=== PATIENT | male | born 1965 | race Caucasian/White ===

== ENCOUNTER → 2018-05-24 | Outpatient (CLI) | payer MEDICAID ==
[~2018-05-24] MED LIST: ALPR1TAB2 PO; HYDR-3307 PO; ZOLP-413 PO
== END | disposition home or self-care (01) ==
LOC: CFH 14:36
PROVIDERS: ATTEND Family Medicine
DX: M25.521 Pain in right elbow (principal)

== ENCOUNTER → 2018-06-19 | Outpatient (CLI) | payer MEDICAID ==
[~2018-06-19] MED LIST changes: +OMNIPAQUE 350 MG/ML, 150 ML BOTTLE ONE
== END | disposition home or self-care (01) ==
LOC: CFH 09:09
PROVIDERS: ATTEND Surgery
DX: K76.89 Other specified diseases of liver (principal); K25.9 Gastric ulcer, unspecified as acute or chronic, without hemorrhage or perforation; K58.9 Irritable bowel syndrome, unspecified; Z98.84 Bariatric surgery status; Z87.19 Personal history of other diseases of the digestive system
CPT/HCPCS: 74177; 76700; Q9967

== ENCOUNTER → 2018-07-18 | Outpatient (CLI) | payer MEDICAID ==
[~2018-07-18] MED LIST changes: -OMNIPAQUE 350 MG/ML, 150 ML BOTTLE ONE; +SINCALIDE (KINEVAC) 5 MCG ONE
== END | disposition home or self-care (01) ==
LOC: PETCFH 12:10
PROVIDERS: ATTEND Surgery
DX: R10.11 Right upper quadrant pain (principal)
CPT/HCPCS: 78227; A9537; J2805

== ENCOUNTER → 2018-11-07 | Outpatient (CLI) | payer MEDICAID ==
[~2018-11-07] MED LIST changes: -SINCALIDE (KINEVAC) 5 MCG ONE
== END | disposition home or self-care (01) ==
LOC: CFH 07:45
PROVIDERS: ATTEND Family Medicine
DX: I34.0 Nonrheumatic mitral (valve) insufficiency (principal)
CPT/HCPCS: 93306

== ENCOUNTER 2019-03-18 10:36 | Day surgery (SDC) | payer MEDICAID ==
[~2019-03-18] VITALS: Ht 177.8 cm; Wt 155.7 kg
[2019-03-18 11:26] VITALS: BP 130/80
[2019-03-18] MEDS ORDERED: ALPR1TAB2 PO (11:26)
[2019-03-18] MEDS ORDERED: ZOLP10TA PO (11:26)
[2019-03-18] MEDS ORDERED: ALBU18HF INH (11:26)
[2019-03-18] MEDS ORDERED: OXYC10TA47 PO (11:26)
[2019-03-18] MEDS ORDERED: LACTATED RINGERS 1,000 ML IV SCH (12:00)
[2019-03-18] MEDS ORDERED: hydrALAzine 20 MG/ML, 1ML IV PRN (12:00)
[2019-03-18] MEDS ORDERED: ONDANSETRON 2MG/ML, 2ML IV PRN (12:00)
[2019-03-18] MEDS ORDERED: ACETAMINOPHEN 325 MG TABLET PO PRN (12:00)
[2019-03-18] MEDS ORDERED: FENTANYL PF 100 MCG/2ML IV PRN (12:00)
[2019-03-18] MEDS ORDERED: ALBUTEROL/IPRATROPIUM 2.5MG/0.5MG, 3 ML NPPB PRN (12:00)
[2019-03-18] MEDS ORDERED: PROPOFOL 50 ML ONE (12:45)
[2019-03-18] MEDS ORDERED: ONDANSETRON ODT 4 MG ONE (14:04)
[2019-03-18] MEDS ORDERED: ONDANSETRON ODT 4 MG PO ONE (14:30)
[2019-05-26] MEDS ORDERED: CYCL-259 PO (11:47)
[2019-05-26] MEDS ORDERED: DICL100G19 TP (11:47)
[2019-05-26] MEDS ORDERED: SACC250C4 PO (11:47)
[2019-05-26] MEDS ORDERED: MOME17SP NS (11:47)
[2019-05-26] MEDS ORDERED: cannabis INH (11:47)
[2019-05-26] MEDS ORDERED: cannabis PO (11:47)
[2019-05-26] MEDS ORDERED: OXYC10TA6 PO (11:47)
[2019-05-26] MEDS ORDERED: ONDA4TAB13 SL (11:47)
[2019-05-26] MEDS ORDERED: CHOL100015 PO (11:47)
== END 2019-03-18 14:55 | disposition home or self-care (01) ==
LOC: OUT 10:36
PROVIDERS: ATTEND Internal Medicine Gastroenterology
DX: T18.2XXA Foreign body in stomach, initial encounter (principal); J45.909 Unspecified asthma, uncomplicated; E66.01 Morbid (severe) obesity due to excess calories; Z68.42 Body mass index [BMI] 45.0-49.9, adult; Z90.49 Acquired absence of other specified parts of digestive tract; Z98.84 Bariatric surgery status; Z88.8 Allergy status to other drugs, medicaments and biological substances; Z88.0 Allergy status to penicillin; Z88.1 Allergy status to other antibiotic agents; X58.XXXA Exposure to other specified factors, initial encounter; Y93.89 Activity, other specified; Y92.89 Other specified places as the place of occurrence of the external cause; Y99.8 Other external cause status; Z98.0 Intestinal bypass and anastomosis status
CPT/HCPCS: 43239; 43247; 88305; J2704; J7120; Q0162

== ENCOUNTER → 2019-04-16 | Outpatient (CLI) | payer MEDICAID ==
[~2019-04-16] MED LIST changes: +ALBU18HF INH; +OXYC10TA47 PO; +ZOLP10TA PO
== END | disposition home or self-care (01) ==
LOC: RAD 07:40
PROVIDERS: ATTEND Thoracic Surgery (Cardiothoracic Vascular Surgery)
DX: K31.6 Fistula of stomach and duodenum (principal)
CPT/HCPCS: 74241

== ENCOUNTER 2019-05-28 07:35 | Inpatient (IN) | payer MEDICAID ==
[~2019-05-28] VITALS: Ht 177.8 cm; Wt 151.0 kg
[~2019-05-28 07:35] MED LIST changes: +BUPIVACAINE/EPI 0.5% 1:200K ONE; +CHOL100015 PO; +CYCL-259 PO; +DICL100G19 TP; +MOME17SP NS; +ONDA4TAB13 SL; +OXYC10TA6 PO; +SACC250C4 PO; +cannabis INH; +cannabis PO
[2019-05-28] MEDS ORDERED: LACTATED RINGERS 1,000 ML IV SCH (08:11)
[2019-05-28 08:13] VITALS: BP 121/81
[2019-05-28] MEDS ORDERED: MIDAZOLAM 1 MG/ML, 2ML ONE (10:07)
[2019-05-28] MEDS ORDERED: PROPOFOL 50 ML ONE ×2 (10:07→11:31)
[2019-05-28] MEDS ORDERED: FENTANYL PF 250 MCG/5ML ONE ×2 (10:08→10:49)
[2019-05-28] MEDS ORDERED: ONDANSETRON 2MG/ML, 2ML ONE ×2 (10:23→12:18)
[2019-05-28] MEDS ORDERED: DEXAMETHASONE 4 MG/ML, 5ML ONE (10:23)
[2019-05-28] MEDS ORDERED: CEFAZOLIN 1,000 MG ONE (10:23)
[2019-05-28] MEDS ORDERED: ROCURONIUM 10MG/ML,5ML ONE (10:50)
[2019-05-28] MEDS ORDERED: EPHEDRINE 50 MG/ML, 1ML IM PRN (11:00)
[2019-05-28] MEDS ORDERED: EPHEDRINE 50 MG/ML, 1ML IVPush PRN (11:00)
[2019-05-28] MEDS ORDERED: ONDANSETRON ODT 8 MG PO PRN (11:00)
[2019-05-28] MEDS ORDERED: MIDAZOLAM 1 MG/ML, 2ML IV PRN (11:00)
[2019-05-28] MEDS ORDERED: hydrALAzine 20 MG/ML, 1ML IV PRN (11:00)
[2019-05-28] MEDS ORDERED: DIAZEPAM 5 MG/ML, 2ML IVPush PRN (11:00)
[2019-05-28] MEDS ORDERED: MEPERIDINE/PF 25MG/0.5ML IVPush PRN (11:00)
[2019-05-28] MEDS ORDERED: ALBUTEROL SULFATE 2.5 MG/3 ML NPPB PRN ×2 (11:00→14:00)
[2019-05-28] MEDS ORDERED: DIPHENHYDRAMINE 50 MG/ML, 1ML IVPush PRN (11:00)
[2019-05-28] MEDS ORDERED: ONDANSETRON 2MG/ML, 2ML IV PRN (11:00)
[2019-05-28] MEDS ORDERED: METOPROLOL 1 MG/ML, 5ML IV PRN (11:00)
[2019-05-28] MEDS ORDERED: PROMETHAZINE 25 MG/ML, 1ML IV PRN (11:00)
[2019-05-28] MEDS ORDERED: SUCCINYLCHOLINE 20 MG/ML, 10ML ONE (11:31)
[2019-05-28] MEDS ORDERED: GLYCOPYRROLATE 0.4 MG/2 ML, 2ML ONE (11:46)
[2019-05-28] MEDS ORDERED: SUGAMMADEX 200 MG/2 ML IVPush ONE (11:46)
[2019-05-28] MEDS ORDERED: FENTANYL PF 100 MCG/2ML ONE (12:07)
[2019-05-28] MEDS ORDERED: OXYcodone 5 MG/5 ML ORAL.SOL UDC ONE (12:08)
[2019-05-28] MEDS: FENTANYL PF 100 MCG/2ML IV PRN ×3 (12:10→12:26)
[2019-05-28] MEDS: OXYcodone 5 MG/5 ML ORAL.SOL UDC PO PRN ×2 (12:14→12:50)
[2019-05-28] MEDS ORDERED: MEPERIDINE/PF 25MG/ML,1ML ONE (12:21)
[2019-05-28] MEDS ORDERED: ENALAPRILAT 1.25 MG/ML, 2ML IV PRN (12:30)
[2019-05-28] MEDS ORDERED: DIPHENHYDRAMINE 50 MG/ML, 1ML IV PRN (12:30)
[2019-05-28] MEDS ORDERED: FLUTICASONE NASAL SPRAY 16GM NAS PRN (12:30)
[2019-05-28] MEDS ORDERED: HYDROmorphone 1 MG/ML, 1ML INJ IVPush PRN (12:30)
[2019-05-28] MEDS ORDERED: PROMETHAZINE 25 MG/ML, 1ML IM PRN (12:30)
[2019-05-28] MEDS ORDERED: LORazepam 2 MG/ML, 1ML IV PRN (12:30)
[2019-05-28] MEDS ORDERED: PHENOL THROAT SPRAY BOTTLE MM PRN (12:30)
[2019-05-28] MEDS ORDERED: HYDROcodone/APAP 7.5-325MG/15ML UDC PO PRN (12:30)
[2019-05-28] MEDS ORDERED: PROMETHAZINE 12.5 MG SUPP PR PRN (12:30)
[2019-05-28] MEDS ORDERED: CYCLOBENZAPRINE 10 MG TABLET PO PRN (12:30)
[2019-05-28] MEDS ORDERED: hydrALAzine 20 MG/ML, 1ML IVPush PRN (12:30)
[2019-05-28] MEDS ORDERED: HYDROmorphone 2 MG/ML, 1ML ONE (12:32)
[2019-05-28] MEDS: HYDROmorphone 2 MG/ML, 1ML IVPush PRN ×3 (12:34→12:52)
[2019-05-28 13:45] VITALS: BP 112/67
[2019-05-28] MEDS ORDERED: OXYcodone IR 5MG TABLET PO PRN (14:30)
[2019-05-28] MEDS: LACTATED RINGERS 1,000 ML IV SCH (15:18)
[2019-05-28] MEDS ORDERED: OXYcodone IR 5MG TABLET ONE (18:07)
[2019-05-28] MEDS: OXYcodone IR 5MG TABLET PO PRN ×2 (18:33→21:41)
[2019-05-28] MEDS: ONDANSETRON 2MG/ML, 2ML IVPush PRN (18:33)
[2019-05-28 19:52] VITALS: BP 113/71
[2019-05-28] MEDS: FAMOTIDINE 20 MG/2 ML IVPush SCH (21:40)
[2019-05-29 00:45] VITALS: BP 100/57
[2019-05-29] MEDS: OXYcodone IR 5MG TABLET PO PRN ×3 (00:45→09:02)
[2019-05-29] MEDS: ONDANSETRON 2MG/ML, 2ML IVPush PRN (00:45)
[2019-05-29 07:21] VITALS: BP 104/67
[2019-05-29] MEDS: LACTATED RINGERS 1,000 ML IV SCH (07:22)
[2019-05-29] MEDS ORDERED: ENOXAPARIN 40 MG/0.4 ML SQ SCH (09:00)
[2019-05-29] MEDS: FAMOTIDINE 20 MG/2 ML IVPush SCH (09:01)
[2019-05-29 09:08] VITALS: BP 101/61
[2019-05-29] MEDS ORDERED: ZOLPIDEM 5MG TABLET PO PRN (10:00)
[2019-05-29] MEDS ORDERED: ALPRazolam 1MG TAB PO PRN (10:00)
[2019-05-29] MEDS ORDERED: OXYcodone IR 5MG TABLET PO PRN (10:00)
[2019-05-29] MEDS ORDERED: ONDANSETRON ODT 4 MG SL PRN (10:00)
[2019-05-29] MEDS ORDERED: CANNABIS PO SCH (10:00)
[2019-05-29] MEDS ORDERED: DICLOFENAC SODIUM TP SCH (10:00)
[2019-05-29] MEDS ORDERED: FLORASTOR 250 MG CAPSULE PO SCH (21:00)
[2019-05-30] MEDS ORDERED: CHOLECALCIFEROL 50000 UNIT PO SCH (09:00)
== END 2019-05-29 10:20 | disposition home or self-care (01) | DRG 327 ==
LOC: ORIP 07:35 → EDSTATUS 10:00 → 4NOR 13:30 → DCLOUNGE 05-29 10:10
PROVIDERS: ADMIT Thoracic Surgery (Cardiothoracic Vascular Surgery); ATTEND Thoracic Surgery (Cardiothoracic Vascular Surgery)
PROC: 0D164ZA Bypass Stomach to Jejunum, Percutaneous Endoscopic Approach (ICD-10-PCS; principal; 2019-05-28 10:00)
PROC: 0DB84ZZ Excision of Small Intestine, Percutaneous Endoscopic Approach (ICD-10-PCS; 2019-05-28 10:00)
DX: K95.89 Other complications of other bariatric procedure (principal); Z68.42 Body mass index [BMI] 45.0-49.9, adult; R13.10 Dysphagia, unspecified; T18.2XXA Foreign body in stomach, initial encounter; K66.0 Peritoneal adhesions (postprocedural) (postinfection); E66.01 Morbid (severe) obesity due to excess calories; R11.10 Vomiting, unspecified; Y83.2 Surgical operation with anastomosis, bypass or graft as the cause of abnormal reaction of the patient, or of later complication, without mention of misadventure at the time of the procedure; Y92.098 Other place in other non-institutional residence as the place of occurrence of the external cause
CPT/HCPCS: 36415; J3490; 86850; 86900; 88307; 93005; G0378; J0690; J1100; J1170; J1650; J2175; J2250; J2405; J2704; J3010; J0330; J1200; J7120

== ENCOUNTER → 2019-10-10 | Outpatient (CLI) | payer MEDICAID ==
[~2019-10-10] MED LIST changes: -BUPIVACAINE/EPI 0.5% 1:200K ONE; -HYDR-3307 PO; +HYDR-36 PO
== END | disposition home or self-care (01) ==
LOC: RAD 10:38 → EDSTATUS 11:00
PROVIDERS: ATTEND Family Medicine
DX: K87 Disorders of gallbladder, biliary tract and pancreas in diseases classified elsewhere (principal); R10.11 Right upper quadrant pain; Z90.49 Acquired absence of other specified parts of digestive tract
CPT/HCPCS: 74181

== ENCOUNTER 2019-12-05 07:50 | Outpatient (CLI) | payer MEDICAID | END 2019-12-05 23:59 | disposition home or self-care (01) | LOC: RAD 07:50 | PROVIDERS: ATTEND Internal Medicine Gastroenterology | DX: R10.11 Right upper quadrant pain (principal); R10.13 Epigastric pain; Z90.49 Acquired absence of other specified parts of digestive tract; Z98.84 Bariatric surgery status | CPT/HCPCS: 74245 ==

== ENCOUNTER 2019-12-26 05:30 | Day surgery (SDC) | payer MEDICAID ==
[~2019-12-26] VITALS: Ht 177.8 cm; Wt 152.9 kg
[2019-12-26] MEDS ORDERED: LACTATED RINGERS 1,000 ML IV SCH (06:20)
[2019-12-26 06:47] VITALS: BP 135/97
[2019-12-26] MEDS ORDERED: PROPOFOL 50 ML ONE (07:29)
[2019-12-26] MEDS ORDERED: ONDANSETRON 2MG/ML, 2ML IV PRN (07:30)
[2019-12-26] MEDS ORDERED: ACETAMINOPHEN 325 MG TABLET PO PRN (07:30)
[2019-12-26] MEDS ORDERED: FENTANYL PF 100 MCG/2ML IV PRN (07:30)
[2019-12-26] MEDS ORDERED: OXYcodone 5 MG/5 ML ORAL.SOL UDC PO PRN (07:30)
[2019-12-26] MEDS ORDERED: MIDAZOLAM 1 MG/ML, 2ML IV PRN (07:30)
== END 2019-12-26 09:15 | disposition home or self-care (01) ==
LOC: OUT 05:30
PROVIDERS: ATTEND Internal Medicine Gastroenterology
DX: R10.13 Epigastric pain (principal); K91.89 Other postprocedural complications and disorders of digestive system; K29.50 Unspecified chronic gastritis without bleeding; E66.01 Morbid (severe) obesity due to excess calories; J45.909 Unspecified asthma, uncomplicated; G47.33 Obstructive sleep apnea (adult) (pediatric); F32.9 Major depressive disorder, single episode, unspecified; F41.9 Anxiety disorder, unspecified; E55.9 Vitamin D deficiency, unspecified; Z68.43 Body mass index [BMI] 50.0-59.9, adult; Z79.899 Other long term (current) drug therapy; Z88.0 Allergy status to penicillin; Z91.040 Latex allergy status; Z98.84 Bariatric surgery status; Z91.018 Allergy to other foods; Z90.49 Acquired absence of other specified parts of digestive tract; Z98.890 Other specified postprocedural states
CPT/HCPCS: 43239; 43245; 88305; C1725; J2704; J7120

== ENCOUNTER → 2020-06-04 | Outpatient (CLI) | payer MEDICAID, OTHER ==
[~2020-06-04] MED LIST changes: +HYDR-3246 PO; -HYDR-36 PO
== END | disposition home or self-care (01) ==
LOC: STAR 09:56
PROVIDERS: ATTEND Thoracic Surgery (Cardiothoracic Vascular Surgery)
DX: Z01.818 Encounter for other preprocedural examination (principal); Z11.59 Encounter for screening for other viral diseases
CPT/HCPCS: 36415; 87635

== ENCOUNTER 2020-06-09 06:07 | Inpatient (IN) | payer MEDICAID, OTHER ==
[~2020-06-09] VITALS: Ht 177.8 cm; Wt 154.0 kg
[2020-06-09] MEDS ORDERED: CHLORHEXIDINE 15 ML UDC ONE (06:51)
[2020-06-09] MEDS ORDERED: CHLORHEXIDINE 15 ML UDC MM ONE (07:00)
[2020-06-09] MEDS ORDERED: LACTATED RINGERS 1,000 ML IV SCH (07:04)
[2020-06-09] MEDS ORDERED: BUPIVACAINE/PF-EPI 0.5% 1:200K ONE (07:10)
[2020-06-09] MEDS ORDERED: MIDAZOLAM 1 MG/ML, 2ML ONE (07:17)
[2020-06-09] MEDS ORDERED: FENTANYL PF 250 MCG/5ML ONE (07:18)
[2020-06-09] MEDS ORDERED: CEFAZOLIN 1,000 MG ONE ×2 (07:46→07:47)
[2020-06-09] MEDS ORDERED: SUCCINYLCHOLINE 20 MG/ML, 10ML ONE (07:46)
[2020-06-09] MEDS ORDERED: GLYCOPYRROLATE 0.2MG/1ML, 5ML ONE (07:46)
[2020-06-09] MEDS ORDERED: PROPOFOL 10 MG/ML, 20ML ONE ×2 (07:46→07:47)
[2020-06-09] MEDS ORDERED: ROCURONIUM 10MG/ML,5ML ONE ×2 (07:46)
[2020-06-09] MEDS ORDERED: ONDANSETRON 2MG/ML, 2ML ONE ×2 (07:46→10:30)
[2020-06-09] MEDS ORDERED: DEXAMETHASONE 4 MG/ML, 1ML ONE ×2 (07:46)
[2020-06-09] MEDS ORDERED: NEOSTIGMINE 1 MG/ML, 10ML ONE (07:46)
[2020-06-09] MEDS ORDERED: BUPIVACAINE/PF-EPI 0.5% 1:200K INFIL ONE (08:10)
[2020-06-09] MEDS ORDERED: KETOROLAC 30 MG/1 ML ONE (09:02)
[2020-06-09] MEDS ORDERED: SUGAMMADEX 200 MG/2 ML IVPush ONE (09:02)
[2020-06-09] MEDS ORDERED: DIAZEPAM 5 MG/ML, 2ML IVPush PRN (09:30)
[2020-06-09] MEDS ORDERED: OXYcodone 5 MG/5 ML ORAL.SOL UDC PO PRN (09:30)
[2020-06-09] MEDS ORDERED: ACETAMINOPHEN 325 MG TABLET PO PRN (09:30)
[2020-06-09] MEDS ORDERED: LABETALOL 5MG/ML, 20ML IV PRN (09:30)
[2020-06-09] MEDS ORDERED: PROMETHAZINE 25 MG/ML, 1ML IV PRN (09:30)
[2020-06-09] MEDS ORDERED: ALBUTEROL SULFATE 2.5 MG/3 ML NPPB PRN (09:30)
[2020-06-09] MEDS ORDERED: hydrALAzine 20 MG/ML, 1ML IV PRN (09:30)
[2020-06-09] MEDS ORDERED: MEPERIDINE/PF 25MG/0.5ML IVPush PRN (09:30)
[2020-06-09] MEDS: LACTATED RINGERS 1,000 ML IV SCH ×3 (09:37→22:26)
[2020-06-09] MEDS ORDERED: FENTANYL PF 100 MCG/2ML ONE ×2 (09:38→09:58)
[2020-06-09] MEDS: FENTANYL PF 100 MCG/2ML IV PRN ×4 (09:39→10:15)
[2020-06-09] MEDS ORDERED: PROMETHAZINE 25 MG/ML, 1ML ONE (09:41)
[2020-06-09] MEDS ORDERED: ONDANSETRON 2MG/ML, 2ML IVPush PRN (10:00)
[2020-06-09] MEDS: PANTOPRAZOLE 40 MG IV IVPush SCH (10:00)
[2020-06-09] MEDS ORDERED: ALBUTEROL HFA 90 MCG/SPRAY INH PRN (10:00)
[2020-06-09] MEDS ORDERED: ENALAPRILAT 1.25 MG/ML, 2ML IV PRN (10:00)
[2020-06-09] MEDS ORDERED: LORazepam 2 MG/ML, 1ML IV PRN (10:00)
[2020-06-09] MEDS ORDERED: PHENOL THROAT SPRAY BOTTLE MM PRN (10:00)
[2020-06-09] MEDS ORDERED: PROMETHAZINE 25 MG/ML, 1ML IM PRN (10:00)
[2020-06-09] MEDS ORDERED: PROMETHAZINE 12.5 MG SUPP PR PRN (10:00)
[2020-06-09] MEDS ORDERED: hydrALAzine 20 MG/ML, 1ML IVPush PRN (10:00)
[2020-06-09] MEDS ORDERED: HYDROcodone/APAP 7.5-325MG/15ML UDC PO PRN (10:00)
[2020-06-09] MEDS ORDERED: METHOCARBAMOL 1,000 MG in DEXTROSE 5% 100 ML IV ONE (10:30)
[2020-06-09] MEDS ORDERED: HYDROmorphone 2 MG/ML, 1ML ONE (10:30)
[2020-06-09] MEDS ORDERED: ONDANSETRON 2MG/ML, 2ML IVPush ONE (10:30)
[2020-06-09] MEDS: HYDROmorphone 2 MG/ML, 1ML IVPush PRN ×2 (10:36→10:57)
[2020-06-09] MEDS: morphine SULFATE 10 MG/ML, 1ML IVPush PRN ×4 (12:02→22:26)
[2020-06-09 14:05] VITALS: BP 131/85
[2020-06-09] MEDS: DIPHENHYDRAMINE 50 MG/ML, 1ML IV PRN ×3 (14:49→22:30)
[2020-06-09 19:24] VITALS: BP 110/71
[2020-06-10 00:55] VITALS: BP 112/72
[2020-06-10 03:41] VITALS: BP 110/73
[2020-06-10] MEDS: morphine SULFATE 10 MG/ML, 1ML IVPush PRN (05:27)
[2020-06-10 05:30] LABS: BASOPHILS # (AUTO) 0.02 x10^3/uL (0-0.1); BASOPHILS % (AUTO) 0 % (0-1); EOSINOPHILS # (AUTO) 0.08 x10^3/uL (0-0.4); EOSINOPHILS % (AUTO) 1 % (1-7); LYMPHOCYTES # (AUTO) 2.14 x10^3/uL (1-3.4); LYMPHOCYTES % (AUTO) 25 % (22-44); MD NO; MEAN CORPUSCULAR HEMOGLOBIN 27.7 pg (27.5-34.5); MEAN CORPUSCULAR HGB CONC 32.9 g/dL (33.2-36.2); MEAN CORPUSCULAR VOLUME 84.1 fL (81-97); MEAN PLATELET VOLUME 8.1 fL (7.4-10.4); MONOCYTES # (AUTO) 0.72 x10^3/uL (0.2-0.8); MONOCYTES % (AUTO) 8 % (2-9); NEUTROPHILS # (AUTO) 5.77 x10^3/uL (1.8-6.8); NEUTROPHILS % (AUTO) 66 % (42-75); PLATELET COUNT 224 x10^3/uL (130-400); RED BLOOD COUNT 4.31 x10^6/uL (4.38-5.82); RED CELL DISTRIBUTION WIDTH 15.2 % (9.4-14.8)
[2020-06-10 05:40] LABS: ANION GAP 3 mmol/L (5-15); CALCIUM 8.5 mg/dL (8.5-10.1); CHLORIDE 110 mmol/L (98-107)
[2020-06-10 05:43] LABS: CREATININE 0.89 mg/dL (0.7-1.3)
[2020-06-10] MEDS: LACTATED RINGERS 1,000 ML IV SCH ×3 (06:37→22:35)
[2020-06-10 07:26] VITALS: BP 117/58
[2020-06-10] MEDS ORDERED: ENOXAPARIN 40 MG/0.4 ML SQ SCH (10:00)
[2020-06-10] MEDS: PANTOPRAZOLE 40 MG IV IVPush SCH (10:01)
[2020-06-10] MEDS: OXYcodone IR 5MG TABLET PO PRN ×4 (12:08→22:01)
[2020-06-10] MEDS: DIPHENHYDRAMINE 50 MG/ML, 1ML IV PRN ×2 (12:10→22:01)
[2020-06-10 13:55] VITALS: BP 117/69
[2020-06-10 18:41] VITALS: BP 105/67
[2020-06-10] MEDS: ENOXAPARIN 30 MG/0.3 ML SQ SCH (22:00)
[2020-06-11 00:23] VITALS: BP 118/78
[2020-06-11] MEDS: LACTATED RINGERS 1,000 ML IV SCH (05:04)
[2020-06-11] MEDS: OXYcodone IR 5MG TABLET PO PRN (06:06)
[2020-06-11 07:38] VITALS: BP 105/71
[2020-06-11] MEDS: PANTOPRAZOLE 40 MG IV IVPush SCH (09:19)
[2020-06-11] MEDS: ENOXAPARIN 30 MG/0.3 ML SQ SCH (09:19)
[2020-06-11] MEDS ORDERED: OXYC5CAP2 PO (09:56)
== END 2020-06-11 10:13 | disposition home or self-care (01) | DRG 327 ==
LOC: ORIP 06:07 → 4NE 11:30 → DCLOUNGE 06-11 10:07
PROVIDERS: ADMIT Thoracic Surgery (Cardiothoracic Vascular Surgery); ATTEND Thoracic Surgery (Cardiothoracic Vascular Surgery)
PROC: 0D164ZA Bypass Stomach to Jejunum, Percutaneous Endoscopic Approach (ICD-10-PCS; 2020-06-09)
PROC: 0DNU4ZZ Release Omentum, Percutaneous Endoscopic Approach (ICD-10-PCS; 2020-06-09)
PROC: 0DNL4ZZ Release Transverse Colon, Percutaneous Endoscopic Approach (ICD-10-PCS; 2020-06-09)
PROC: 0DB64ZZ Excision of Stomach, Percutaneous Endoscopic Approach (ICD-10-PCS; principal; 2020-06-09 07:30)
DX: K94.29 Other complications of gastrostomy (principal); K31.6 Fistula of stomach and duodenum; Z68.42 Body mass index [BMI] 45.0-49.9, adult; K21.9 Gastro-esophageal reflux disease without esophagitis; G47.30 Sleep apnea, unspecified; G89.4 Chronic pain syndrome; K66.0 Peritoneal adhesions (postprocedural) (postinfection); E66.01 Morbid (severe) obesity due to excess calories; K29.50 Unspecified chronic gastritis without bleeding; Z90.89 Acquired absence of other organs; Z90.49 Acquired absence of other specified parts of digestive tract; Z88.0 Allergy status to penicillin; Z91.040 Latex allergy status; Z91.018 Allergy to other foods; Y83.3 Surgical operation with formation of external stoma as the cause of abnormal reaction of the patient, or of later complication, without mention of misadventure at the time of the procedure; Z20.828 Contact with and (suspected) exposure to other viral communicable diseases
CPT/HCPCS: 36415; 80048; 82040; 85025; 87635; 88307; G0378; J0690; J1100; J1170; J1650; J1885; J2250; J2405; J2550; J2704; J2710; J3010; C9113; J0330; J1200; J2270; J2800; J7120

== ENCOUNTER → 2021-03-02 | Outpatient (CLI) | payer MEDICAID ==
[~2021-03-02] MED LIST changes: -CYCL-259 PO; +CYCL10TA2 PO; -HYDR-3246 PO; +HYDR-3248 PO; +OMNIPAQUE 350 MG/ML, 150 ML BOTTLE ONE; +OXYC5CAP2 PO
== END | disposition home or self-care (01) ==
LOC: CFH 15:05
PROVIDERS: ATTEND Thoracic Surgery (Cardiothoracic Vascular Surgery)
DX: K31.6 Fistula of stomach and duodenum (principal); Z98.84 Bariatric surgery status
CPT/HCPCS: 74177; Q9967

== ENCOUNTER → 2021-03-31 | Outpatient (CLI) | payer MEDICAID ==
[~2021-03-31] MED LIST changes: -OMNIPAQUE 350 MG/ML, 150 ML BOTTLE ONE
== END | disposition home or self-care (01) ==
LOC: RAD 12:14
PROVIDERS: ATTEND Thoracic Surgery (Cardiothoracic Vascular Surgery)
DX: R13.10 Dysphagia, unspecified (principal)
CPT/HCPCS: 74240; 74248

== ENCOUNTER 2021-07-14 07:36 | Day surgery (SDC) | payer MEDICAID ==
[2021-07-12 13:45] LABS: BASOPHILS % (AUTO) 0 % (0-1); EOSINOPHILS % (AUTO) 1 % (1-7); LYMPHOCYTES % (AUTO) 37 % (22-44); MEAN CORPUSCULAR HEMOGLOBIN 27.9 pg (27.5-34.5); MEAN CORPUSCULAR HGB CONC 33.5 g/dL (33.2-36.2); MEAN PLATELET VOLUME 8.6 fL (7.4-10.4); MONOCYTES % (AUTO) 8 % (2-9); NEUTROPHILS % (AUTO) 53 % (42-75); PLATELET COUNT 318 x10^3/uL (130-400); RED BLOOD COUNT 5.41 x10^6/uL (4.38-5.82); RED CELL DISTRIBUTION WIDTH 15.7 % (9.4-14.8)
[~2021-07-14] VITALS: Ht 177.8 cm; Wt 151.1 kg
[~2021-07-14 07:36] MED LIST changes: +DICL20GE TP; +MULT-658 PO
[2021-07-14 08:00] VITALS: BP 120/60
[2021-07-14] MEDS ORDERED: CHLORHEXIDINE 15 ML UDC PO ONE (08:00)
[2021-07-14] MEDS ORDERED: LACTATED RINGERS 1,000 ML IV SCH (08:00)
[2021-07-14] MEDS ORDERED: PROPOFOL 50 ML ONE (08:44)
[2021-07-14] MEDS ORDERED: LABETALOL 5MG/ML, 20ML IV PRN (09:30)
[2021-07-14] MEDS ORDERED: FENTANYL PF 100 MCG/2ML IV PRN (09:30)
[2021-07-14] MEDS ORDERED: EPHEDRINE 50 MG/ML, 1ML IM PRN (09:30)
[2021-07-14] MEDS ORDERED: DIPHENHYDRAMINE 50 MG/ML, 1ML IVPush PRN (09:30)
[2021-07-14] MEDS ORDERED: EPHEDRINE 50 MG/ML, 1ML IVPush PRN (09:30)
[2021-07-14] MEDS ORDERED: PROMETHAZINE 25 MG/ML, 1ML IVPush PRN (09:30)
[2021-07-14] MEDS ORDERED: ONDANSETRON 2MG/ML, 2ML IVPush PRN (09:30)
[2021-07-14] MEDS ORDERED: PROPOFOL 10 MG/ML, 20ML ONE (09:42)
== END 2021-07-14 10:40 | disposition home or self-care (01) ==
LOC: OUT 07:36
PROVIDERS: ATTEND Internal Medicine Gastroenterology
DX: R10.11 Right upper quadrant pain (principal); R10.13 Epigastric pain; K22.5 Diverticulum of esophagus, acquired; K29.50 Unspecified chronic gastritis without bleeding; K58.9 Irritable bowel syndrome, unspecified; F32.9 Major depressive disorder, single episode, unspecified; F41.9 Anxiety disorder, unspecified; J45.909 Unspecified asthma, uncomplicated; Z79.891 Long term (current) use of opiate analgesic; Z79.899 Other long term (current) drug therapy; Z88.0 Allergy status to penicillin; Z88.1 Allergy status to other antibiotic agents; Z91.018 Allergy to other foods; Z91.040 Latex allergy status; Z90.49 Acquired absence of other specified parts of digestive tract; Z98.84 Bariatric surgery status; Z98.890 Other specified postprocedural states
CPT/HCPCS: 36415; 44365; 85025; 88305; J2704; J7120